=== PATIENT | female | born 1935 | race Caucasian/White ===

== ENCOUNTER 2016-09-14 11:36 | Emergency (ER) | payer OTHER ==
[~2016-09-14] VITALS: Ht 162.6 cm; Wt 77.1 kg
[~2016-09-14 11:36] MED LIST: ALLOPURINOL300 M1 PO; OMEPRAZOLE40 M1 PO
--- NOTE | 2016-09-14 12:30 | ED GI/GU/ABDOMINAL COMPLAINT ---
History of Present Illness General Chief Complaint: Abdominal Pain/Flank Pain Stated Complaint: ABD PAIN Source: patient, family Exam Limitations: no limitations Vital Signs & Intake/Output Vital Signs & Intake/Output Vital Signs Date Time Temp Pulse Resp B/P B/P Pulse O2 O2 Flow FiO2 Mean Ox Delivery Rate 09/14 1627 97.0 78 16 154/84 97 Room Air 09/14 1330 97.3 80 16 167/80 97 Room Air Room Air 09/14 1141 99.1 96 18 165/100 97 Room Air Room Air Allergies Coded Allergies: Penicillins (SOB 03/25/16) Reconcile Medications Allopurinol 300 MG TABLET 1 TAB PO DAILY KIDNEY STONES (Reported) Omeprazole 40 MG CAPSULE. 1 CAP PO DAILY GERD (Reported) Triage Note: TRIAGE: 80 Y/O FEMALE PRESENTS WITH PMHX OF DIVERTICULITIS - C/O PAIN TO RIGHT LOWER ABD X1 WEEK. REPORTS PAIN ALSO PRESENTED IN HER RIGHT FLANK. PER PATIENT, DR ALFARO SUGGESTED AN ABDOMINAL CT SCAN TO RULE OUT DIVERTICULITIS. Triage Nurses Notes Reviewed? yes ? N Is pt currently ? No HPI: 80-year-old female arrived to triage to room 21 for evaluation of abdominal pain that she has had for a week. She Has been complaining of left lower quadrant abdominal pain earlier in the week but now it has traveled over to the right lower quadrant. Seen by Dr. Alfaro a few days ago and had a urine culture that was positive for bacteria so she was started on Cipro. Dr. Alfaro called her yesterday and informed her to go to the emergency department since she was having increased pain and radiation of pain. She has some nausea but no vomiting or diarrhea. She reports loose stools but brown with no blood. Her last bowel movement was last evening. She last ate some toast this morning. Pain is tolerable at this time mild to moderate and she does not want any pain medication. There are no alleviating or aggravating factors. (KALI GARCIA APRN) Past History Travel History Traveled to [place] past 21 day No Medical History Any Pertinent Medical History? see below for history Gastrointestinal: diverticulitis, GERD Renal: GOUT Surgical History Surgical History: hysterectomy Psychosocial History What is your primary language Bermudian Tobacco Use: Never used ETOH Use: denies use Illicit Drug Use: denies illicit drug use Family History Hx Contributory? No (KALI GARCIA APRN) Review of Systems Review of Systems Constitutional: Reports: no symptoms. EENTM: Reports: no symptoms. Respiratory: Reports: no symptoms. Cardiovascular: Reports: no symptoms. GI: Reports: abdominal pain, nausea, changes in stool. Genitourinary: Reports: no symptoms. Musculoskeletal: Reports: no symptoms. Skin: Reports: no symptoms. Neurological/Psychological: Reports: no symptoms. Hematologic/Endocrine: Reports: no symptoms. Immunologic/Allergic: Reports: no symptoms. All Other Systems: Reviewed and Negative (KALI GARCIA APRN) Physical Exam Physical Exam General Appearance: well developed/nourished, no apparent distress, alert, awake , comfortable Neck: normal inspection, supple, full range of motion, normal alignment Respiratory: normal breath sounds, chest non-tender, no respiratory distress Cardiovascular: regular rate/rhythm Peripheral Pulses: 2+ radial (R), 2+ radial (L) Gastrointestinal: normal bowel sounds, soft, tenderness (llq and rlq) Back: normal inspection, normal range of motion Extremities: normal range of motion Neurologic/Psych: no motor/sensory deficits, awake, alert, oriented x 3, normal gait, normal mood/affect Skin: intact, normal color, warm/dry Core Measures ACS in differential dx? No Severe Sepsis Present: No Septic Shock Present: No (KALI GARCIA APRN) Progress Differential Diagnosis: appendicitis, diverticulitis, UTI/pyelo Plan of Care: Orders Procedure Date/time Status Saline Lock 09/14 1234 Active CULTURE,URINE 09/14 1234 Active URINALYSIS 09/14 1234 Complete LIPASE 09/14 1234 Complete COMPREHENSIVE METABOLIC PANEL 09/14 1234 Complete CBC WITHOUT DIFFERENTIAL 09/14 1234 Complete AMYLASE 09/14 1234 Complete Laboratory Tests 09/14/16 1308: Urine Color STRAW, Urine Clarity CLEAR, Urine pH 6.0, Ur Specific [place] 1.010, Urine Protein NEG, Urine Ketones NEG, Urine Nitrite NEG, Urine Bilirubin NEG, Urine Urobilinogen 0.2, Ur Leukocyte Esterase TRACE H, Ur Microscopic SEDIMENT EXAMINED, Urine WBC RARE, Ur Epithelial Cells FEW, Urine Bacteria FEW H, Urine Mucus FEW, Urine Hemoglobin NEG, Urine Glucose NEG 09/14/16 1239: Anion Gap 15, Estimated GFR > 60, BUN/Creatinine Ratio 18.8, Glucose 120 H, Calcium 9.7, Total Bilirubin 0.8, AST 44 H, ALT 62 H, Alkaline Phosphatase 76, Total Protein 7.8, Albumin 4.5, Globulin 3.3, Albumin/Globulin Ratio 1.4, Amylase 78, Lipase 107, CBC w Diff NO MAN DIFF REQ, RBC 4.79, MCV 92.9, MCH 31.2 H, RDW 14.4, MPV 7.5, Gran % 62.9, Lymphocytes % 27.4, Monocytes % 7.2, Eosinophils % 2.1, Basophils % 0.4, Absolute Granulocytes 4.4, Absolute Lymphocytes 1.9, Absolute Monocytes 0.5, Absolute Eosinophils 0.1, Absolute Basophils 0, PUBS MCHC 33.6 Microbiology 09/14 1308 URINE ROUT: Urine Culture - RECD Initial ED EKG: none Comments: PATIENT: CASEY ESCOBAR PRESENT AGE: 80 PATIENT ACCOUNT NO: [id number] : 37 LOCATION: [facility] ORDERING PHYSICIAN: KALI GARCIA APRN SERVICE DATE: 09/14/16 EXAM TYPE: CAT - CT ABD & PELVIS W IV CONTRAST EXAMINATION: CT ABDOMEN AND PELVIS WITH CONTRAST CLINICAL INFORMATION: Diverticulitis. COMPARISON: CT abdomen dated 08/11/2009. TECHNIQUE: Multidetector volumetric imaging was performed of the abdomen and pelvis before and after the IV administration of 95 mL of Optiray 320 intravenous contrast. Sagittal and coronal reformatted images were obtained on the technologist's workstation. DLP: 362.68 mGy-cm FINDINGS: LUNG BASES: There are bibasilar dependent atelectatic changes. LIVER, GALLBLADDER, AND BILIARY TREE: The liver is normal in size, shape, and attenuation. No focal hepatic lesion or biliary ductal dilatation is present. There is layering hyperdensity within the gallbladder, consistent with stones versus sludge. There is no gallbladder wall thickening or pericholecystic inflammatory change. The common bile duct is nondilated. PANCREAS: Unremarkable SPLEEN: Unremarkable ADRENAL GLANDS: Unremarkable KIDNEYS AND URETERS: The kidneys are normal in size, shape, and attenuation. No hydronephrosis, hydroureter, or calculi seen. No perinephric stranding. There are bilateral extrarenal pelvises. BLADDER: Unremarkable GASTROINTESTINAL TRACT: There is no large- or small-bowel obstruction. Extensive diverticula are seen throughout the sigmoid colon without adjacent inflammatory change to suggest acute diverticulitis. The appendix is normal. There is no intra-abdominal free air or free fluid. ABDOMINAL WALL: No significant hernia is appreciated. LYMPH NODES: Normal VASCULAR: Contrast opacifies the abdominal aorta and its branch vessels. There are scattered atherosclerotic calcifications. The IVC is unremarkable. PELVIC VISCERA: The uterus is atrophic or surgically absent. There are multiple phleboliths within the pelvis. OSSEOUS STRUCTURES: There is no lytic or blastic osseous lesion. Degenerative changes are seen within the visualized lower thoracic and lumbar spine. IMPRESSION: 1. Diverticulosis without evidence of acute diverticulitis. Normal appendix. 2. Layering stones versus sludge within the gallbladder without pericholecystic inflammatory change to suggest acute cholecystitis. 3. No hydronephrosis or nephrolithiasis. DICTATED BY: JODEE ROSE MD DATE/TIME DICTATED:09/14/161408 LANGUAGE TUTOR:EDUARDA DATE/TIME TRANSCRIBED:09/14/161408 CONFIDENTIAL, DO NOT COPY WITHOUT APPROPRIATE AUTHORIZATION. <Electronically signed in Other Vendor System> SIGNED BY: JODEE ROSE MD [id number] explained CAT scan results to patient. She is concerned because of the sludge and gallstones that are noted on CAT scan with out inflammation. She reports that she has been told in the past that she's had gallbladder sludge and lower quadrant pain. I explained to her that the type of pain she is having doesn't usually correlate with cholecystitis but we will further evaluate with a abdominal ultrasound. She is still refusing pain medication at this time. PATIENT: CASEY ESCOBAR PRESENT AGE: 80 PATIENT ACCOUNT NO: [id number] : 37 LOCATION: [facility] ORDERING PHYSICIAN: KALI GARCIA APRN SERVICE DATE: 09/14/163695 EXAM TYPE: US - US-LIMITED ABDOMEN EXAMINATION: US ABDOMEN LIMITED CLINICAL INFORMATION: Left lower quadrant abdominal pain. Cholecystitis. COMPARISON: CT abdomen/pelvis done earlier the same day at 12:34 PM. TECHNIQUE: Real-time imaging of the right upper quadrant abdominal viscera. FINDINGS: PANCREAS: Normal LIVER: Hypoechoic, likely representing fatty infiltration. The liver demonstrates normal size and contour. No focal lesion or intrahepatic biliary duct dilatation. GALLBLADDER: Layering stones are seen within the gallbladder. There is no gallbladder wall thickening or pericholecystic free fluid to suggest acute cholecystitis. COMMON BILE DUCT: Normal in caliber measuring 0.3 cm in diameter. RIGHT KIDNEY: Normal. No hydronephrosis. No renal calculi or focal parenchymal lesions. The kidney measures 11.3 cm in maximum dimension. FREE FLUID: None IMPRESSION: 1. Cholelithiasis without gallbladder wall thickening or pericholecystic free fluid to suggest acute cholecystitis. 2. Hypoechoic liver, likely representing fatty infiltration. DICTATED BY: JODEE ROSE MD DATE/TIME DICTATED:09/14/161628 LANGUAGE TUTOR:EDUARDA DATE/TIME TRANSCRIBED:09/14/161628 CONFIDENTIAL, DO NOT COPY WITHOUT APPROPRIATE AUTHORIZATION. <Electronically signed in Other Vendor System> SIGNED BY: JODEE ROSE MD [id number] explained ultrasound results to patient and daughter. They feel much better about diagnosis, not having cholecystitis they will follow up with Dr. Alfaro this week. Case discussed with Dr. Grewal. (KALI GARCIA APRN) Departure Departure Time of Disposition: 1654 Disposition: HOME OR SELF CARE Condition: Stable Clinical Impression Primary Impression: Cholelithiasis Qualifiers: Cholelithiasis location: gallbladder Cholecystitis presence: without cholecystitis Biliary obstruction: without biliary obstruction Qualified Code: K80.20 - Calculus of gallbladder without cholecystitis without obstruction Secondary Impressions: Abdominal pain Qualifiers: Abdominal location: left lower quadrant Qualified Code: R10.32 - Left lower quadrant pain Referrals: DOMINIC LEY,NANCY Abel (PCP/Family) Additional Instructions: Please follow up with Dr. Alfaro this week. Return to the emergency department for any fever, chills, increased abdominal pain, nausea, vomiting, diarrhea. Departure Forms: Customer Survey General Discharge Information (KALI GARCIA APRN) PA/CARE INFORMATION ASSOCIATE Co-Sign Statement Statement: ED Attending supervision documentation- [] I saw and evaluated the patient. I have also reviewed all the pertinent lab results and diagnostic results. I agree with the findings and the plan of care as documented in the PA's/CARE INFORMATION ASSOCIATE's documentation. [] I have reviewed the ED Record and agree with the PA's/CARE INFORMATION ASSOCIATE's documentation. [] Additions or exceptions (if any) to the PAs/CARE INFORMATION ASSOCIATE's note and plan are summarized below: [] (ALEXANDRU LEY,PAUL Cunningham)
[2016-09-14 12:48] LABS: ABSOLUTE BASOPHIL COUNT 0 /CUMM (0.0-0.2); ABSOLUTE EOSINOPHIL COUNT 0.1 /CUMM (0.0-0.7); ABSOLUTE GRANULOCYTE CT 4.4 /CUMM (1.4-6.5); ABSOLUTE LYMPH COUNT 1.9 /CUMM (1.2-3.4); ABSOLUTE MONOCYTE COUNT 0.5 /CUMM (0.10-0.60); BASOPHIL % 0.4 % (0.0-2.0); EOSINOPHIL % 2.1 % (0-5); GRANULOCYTE % 62.9 % (42.2-75.2); HEMATOCRIT 44.5 % (37-47); MEAN CORPUSCULAR HGB 31.2 PG (27.0-31.0); MEAN CORPUSCULAR HGB CONC 33.6 G/DL (33.0-37.0); MEAN CORPUSCULAR VOLUME 92.9 FL (81.0-99.0); MEAN PLATELET VOLUME 7.5 FL (7.4-10.4); PLATELET COUNT 265 /CUMM (130-400); RBC DISTRIBUTION WIDTH 14.4 % (11.5-14.5); RED BLOOD CELL CT 4.79 /CUMM (4.20-5.40)
--- NOTE | 2016-09-14 14:40 | CT SCAN REPORT ---
EXAMINATION: CT ABDOMEN AND PELVIS WITH CONTRAST CLINICAL INFORMATION: Diverticulitis. COMPARISON: CT abdomen dated 08/11/2009. TECHNIQUE: Multidetector volumetric imaging was performed of the abdomen and pelvis before and after the IV administration of 95 mL of Optiray 320 intravenous contrast. Sagittal and coronal reformatted images were obtained on the technologist's workstation. DLP: 362.68 mGy-cm FINDINGS: LUNG BASES: There are bibasilar dependent atelectatic changes. LIVER, GALLBLADDER, AND BILIARY TREE: The liver is normal in size, shape, and attenuation. No focal hepatic lesion or biliary ductal dilatation is present. There is layering hyperdensity within the gallbladder, consistent with stones versus sludge. There is no gallbladder wall thickening or pericholecystic inflammatory change. The common bile duct is nondilated. PANCREAS: Unremarkable SPLEEN: Unremarkable ADRENAL GLANDS: Unremarkable KIDNEYS AND URETERS: The kidneys are normal in size, shape, and attenuation. No hydronephrosis, hydroureter, or calculi seen. No perinephric stranding. There are bilateral extrarenal pelvises. BLADDER: Unremarkable GASTROINTESTINAL TRACT: There is no large- or small-bowel obstruction. Extensive diverticula are seen throughout the sigmoid colon without adjacent inflammatory change to suggest acute diverticulitis. The appendix is normal. There is no intra-abdominal free air or free fluid. ABDOMINAL WALL: No significant hernia is appreciated. LYMPH NODES: Normal VASCULAR: Contrast opacifies the abdominal aorta and its branch vessels. There are scattered atherosclerotic calcifications. The IVC is unremarkable. PELVIC VISCERA: The uterus is atrophic or surgically absent. There are multiple phleboliths within the pelvis. OSSEOUS STRUCTURES: There is no lytic or blastic osseous lesion. Degenerative changes are seen within the visualized lower thoracic and lumbar spine. IMPRESSION: 1. Diverticulosis without evidence of acute diverticulitis. Normal appendix. 2. Layering stones versus sludge within the gallbladder without pericholecystic inflammatory change to suggest acute cholecystitis. 3. No hydronephrosis or nephrolithiasis.
[2016-09-14 16:27] VITALS: BP 154/84
--- NOTE | 2016-09-14 16:47 | ULTRASOUND REPORT ---
EXAMINATION: US ABDOMEN LIMITED CLINICAL INFORMATION: Left lower quadrant abdominal pain. Cholecystitis. COMPARISON: CT abdomen/pelvis done earlier the same day at 12:34 PM. TECHNIQUE: Real-time imaging of the right upper quadrant abdominal viscera. FINDINGS: PANCREAS: Normal LIVER: Hypoechoic, likely representing fatty infiltration. The liver demonstrates normal size and contour. No focal lesion or intrahepatic biliary duct dilatation. GALLBLADDER: Layering stones are seen within the gallbladder. There is no gallbladder wall thickening or pericholecystic free fluid to suggest acute cholecystitis. COMMON BILE DUCT: Normal in caliber measuring 0.3 cm in diameter. RIGHT KIDNEY: Normal. No hydronephrosis. No renal calculi or focal parenchymal lesions. The kidney measures 11.3 cm in maximum dimension. FREE FLUID: None IMPRESSION: 1. Cholelithiasis without gallbladder wall thickening or pericholecystic free fluid to suggest acute cholecystitis. 2. Hypoechoic liver, likely representing fatty infiltration.
== END 2016-09-14 17:10 ==
LOC: ERH 11:36
PROVIDERS: Nurse Practitioner Family
DX: K80.20 Calculus of gallbladder without cholecystitis without obstruction (principal)
CPT/HCPCS: 74177; 81001; 87086; 96360

== ENCOUNTER 2017-07-21 16:37 | Emergency (ER) | payer OTHER ==
[~2017-07-21] VITALS: Ht 162.6 cm; Wt 78.9 kg
[2017-07-21 17:29] LABS: ABSOLUTE BASOPHIL COUNT 0 /CUMM (0.0-0.2); ABSOLUTE EOSINOPHIL COUNT 0.1 /CUMM (0.0-0.7); ABSOLUTE GRANULOCYTE CT 4.7 /CUMM (1.4-6.5); ABSOLUTE LYMPH COUNT 1.5 /CUMM (1.2-3.4); ABSOLUTE MONOCYTE COUNT 0.5 /CUMM (0.10-0.60); BASOPHIL % 0.3 % (0.0-2.0); EOSINOPHIL % 1.2 % (0-5); GRANULOCYTE % 69.2 % (42.2-75.2); HEMATOCRIT 42.5 % (37-47); MEAN CORPUSCULAR HGB 31.3 PG (27.0-31.0); MEAN CORPUSCULAR HGB CONC 33.2 G/DL (33.0-37.0); MEAN CORPUSCULAR VOLUME 94.2 FL (81.0-99.0); MEAN PLATELET VOLUME 7.6 FL (7.4-10.4); PLATELET COUNT 267 /CUMM (130-400); RBC DISTRIBUTION WIDTH 14.4 % (11.5-14.5); RED BLOOD CELL CT 4.51 /CUMM (4.20-5.40); WHITE BLOOD CELL COUNT 6.8 /CUMM (4.8-10.8)
--- NOTE | 2017-07-21 17:43 | ED DYSPNEA/ASTHMA COMPLAINT ---
History of Present Illness General Chief Complaint: General Adult Stated Complaint: SOB,ACHING IN BOTH ARMS Source: patient, family, old records Exam Limitations: no limitations Vital Signs & Intake/Output Vital Signs & Intake/Output Vital Signs Date Time Temp Pulse Resp B/P B/P Pulse O2 O2 Flow FiO2 Mean Ox Delivery Rate 07/21 1846 74 18 150/74 97 Room Air 07/21 1658 97.9 91 18 162/97 97 Room Air Allergies Coded Allergies: Penicillins (SOB 03/25/16) Reconcile Medications Allopurinol 300 MG TABLET 1 TAB PO DAILY KIDNEY STONES (Reported) Omeprazole 40 MG CAPSULE.DR 1 CAP PO DAILY GERD (Reported) Triage Note: PT TO ER C/C ON AND OFF SOB AND BILATERAL ARM ACHING X 2 WEEKS. PATIENT STATES NOTHING MAKES SYMPTOMS ON AND OFF. DENIES C/P. Triage Nurses Notes Reviewed? yes Onset: Gradual Duration: week(s):, intermittent, waxing and waning Timing: recent history Severity: mild, moderate Activities at Onset: none Prior Episodes/Possible Cause: no prior episodes Associated Symptoms: denies HPI: 81-year-old female history of gout presents to ER for evaluation complaining for the past 1 week of dull aching pain to bilateral biceps. She states symptoms came on after she was breaking down boxes. She denies recent fall or trauma pain is nonradiating. No numbness no tingling in her arms. No neck or back pain leg pain numbness tingling or swelling. She also reports a past several months she's had intermittent shortness of breath with talking. Symptoms are not present with exertion no chest pain no cough fever chills hemoptysis. Her arm pain comes on intermittently last a few minutes and subsides on its own. She is not taken anything for it. She is not follow-up with a primary care regarding the symptoms. She never smoked however states she was subjected to secondhand smoke when she was younger. The patient states a few months ago she was bitten by a tick she denies any myalgias at that time no rashes to her skin no fever no chills headaches or any other complaints (Mabel SNOW,Yury) Past History Travel History Traveled to [place] past 21 day No Medical History Any Pertinent Medical History? see below for history Cardiovascular: hyperlipidemia Gastrointestinal: diverticulitis, GERD Renal: GOUT Surgical History Surgical History: hysterectomy Psychosocial History What is your primary language Norwegian Tobacco Use: Never used Family History Hx Contributory? No (Yury Crain) Review of Systems Review of Systems Constitutional: Reports: see HPI. Comments Review of systems: See HPI, All other systems negative. Constitutional, no chills no fever, HEENT: no sore throat no congestion Cardiovascular: No chest pain , no palpitation Skin: no rashes, no change in skin Respiratory:see hpi GI: No nausea no vomiting, no diarrhea, : No dysuria No hematuria, no frequency Muscle skeletal: No joint pain, no back pain Neurologic: , no headache Heme/endocrine: No bruising (Yury Crain) Physical Exam Physical Exam General Appearance: well developed/nourished, alert, awake Respiratory: normal breath sounds, chest non-tender Comments: Well-developed well-nourished person in no acute distress HEENT: Normal EENT exam; PERRL, EOMI, no nystagmus. HEAD is atraumatic. moist mucous membranes. Neck: Supple, , normal range of motion Back: Nontender, no CVA tenderness. Full range of motion Cardiovascular: Regular rate and rhythms no murmurs rubs or gallops, normal JVP Respiratory: Chest nontender.There were no bony deformities, no asymmetry. No respiratory distress. Patient speaking in full complete sentences. Breath sounds clear to auscultation bilaterally: NO W/R/R Abdomen: Soft, nontender Shoulder: Atraumatic/Stable. FROM . Elbow: Atraumatic/stable. FROM. No laxity Upper arm/Forearm: Atraumatic tenderness to palpation over bilateral biceps, pain is not reproducible range of motion there is no erythema warmth swelling no edema, 5 out of 5 region manager strength noted to bilateral upper extremities Hand/Wrist: Atraumatic/stable. Skin intact. FROM Pulses: Normal/equal radial pulses bilaterally. Brisk cap refill lower Extremity: No edema, full range of motion of extremities Neuro: Alert oriented x3, motor sensory normal, cranial nerves II through XII grossly intact. There were no obvious focal neurologic abnormalities. Skin: No appreciable rash on exposed skin, skin is warm and dry. Psych: Mood and affect is normal, memory and judgment is normal. Core Measures ACS in differential dx? No CVA/TIA Diagnosis No Sepsis Present: No Sepsis Focused Exam Completed? No (Yury Crain) Progress Differential Diagnosis: AMI, bronchitis, COPD, pericarditis, pulmonary embolism, pneumonia, unstable angina, tick born illness Plan of Care: Orders Procedure Date/time Status Add-on Test (ER Only) 07/21 1814 Active LYME TITRE 07/21 1713 Active TROPONIN LEVEL 07/22 1711 Complete COMPREHENSIVE METABOLIC PANEL 07/22 1711 Complete CBC WITHOUT DIFFERENTIAL 07/22 1711 Complete EKG 07/21 163 Active Laboratory Tests 07/21/171713: Anion Gap 12, Estimated GFR > 60, BUN/Creatinine Ratio 21.4, Glucose 114 H, Calcium 9.6, Total Bilirubin 0.6, AST 34, ALT 48, Alkaline Phosphatase 62, Troponin I < 0.01, Total Protein 7.4, Albumin 4.1, Globulin 3.3, Albumin/ Globulin Ratio 1.2, CBC w Diff NO MAN DIFF REQ, RBC 4.51, MCV 94.2, MCH 31.3 H, MCHC 33.2, RDW 14.4, MPV 7.6, Gran % 69.2, Lymphocytes % 22.3, Monocytes % 7.0, Eosinophils % 1.2, Basophils % 0.3, Absolute Granulocytes 4.7, Absolute Lymphocytes 1.5, Absolute Monocytes 0.5, Absolute Eosinophils 0.1, Absolute Basophils 0, Lyme Disease Antibody Pending Labs ordered old records. Patient denies any symptoms at this time including shortness of breath ambulatory here with steady gait without shortness of breath reproducible. Case discussed with Dr. De Paz agrees with plan. I discussed with the patient at length all of their results. I had an extensive conversation regarding need for close follow up with their primary care physician this week as well as return precautions. I answered all of their questions, they feel comfortable with the plan and follow-up care. I discussed with the patient/family the medications that they will receive. I gave them signs and symptoms that could indicate an adverse reaction. I have advised them to limit their activities until they can see how they respond to the medication. Diagnostic Imaging: Viewed by Me: Radiology Read. Discussed w/RAD: Radiology Read. Radiology Impression: PATIENT: CASEY ESCOBAR PRESENT AGE: 81 PATIENT ACCOUNT NO: [id number] : 37 LOCATION: [facility] ORDERING PHYSICIAN: Yury SNOW SERVICE DATE: 04 EXAM TYPE: RAD - XRY-CHEST XRAY, TWO VIEWS EXAMINATION: XR CHEST CLINICAL INFORMATION: Dyspnea. COMPARISON: None TECHNIQUE: 2 views of the chest were obtained. FINDINGS: Both lungs are well-expanded and clear. Heart size and pulmonary vascularity is normal. No gross bony abnormality seen. IMPRESSION: Unremarkable chest examination. DICTATED BY: Tru Aguila MD DATE/TIME DICTATED:07/21/171833 COMMUNICATIONS PROFESSIONAL:EDUARDA DATE/TIME TRANSCRIBED:07/21/171833 CONFIDENTIAL, DO NOT COPY WITHOUT APPROPRIATE AUTHORIZATION. <Electronically signed in Other Vendor System> SIGNED BY: Tru Aguila MD 07/21/171837 Initial ED EKG: normal intervals, normal p-waves, normal QRS complex, normal sinus rhythm (80) Prior EKG: unchanged (Yury Crain) Departure Departure Time of Disposition: 1853 Disposition: HOME OR SELF CARE Condition: Stable Clinical Impression Primary Impression: Myalgia Referrals: Kamila LEY,Loli Abel (PCP/Family) Additional Instructions: FOLLOW UP WITH DR ALFARO THIS WEEK. TYLENOL FOR PAIN. RETURN AT ANYTIME SOONER WITH ANY CONCERNS Departure Forms: Customer Survey General Discharge Information (Yury Crain) PA/DRILLING ENGINEERING MANAGER Co-Sign Statement Statement: ED Attending supervision documentation- [] I saw and evaluated the patient. I have also reviewed all the pertinent lab results and diagnostic results. I agree with the findings and the plan of care as documented in the PA's/DRILLING ENGINEERING MANAGER's documentation. [X] I have reviewed the ED Record and agree with the PA's/DRILLING ENGINEERING MANAGER's documentation. [] Additions or exceptions (if any) to the PAs/DRILLING ENGINEERING MANAGER's note and plan are summarized below: [] (Zandra LEY,Wero Beth) Critical Care Note Critical Care Note Critical Care Time: non-applicable (Yury Crain)
--- NOTE | 2017-07-21 18:38 | RADIOLOGY REPORT ---
EXAMINATION: XR CHEST CLINICAL INFORMATION: Dyspnea. COMPARISON: None TECHNIQUE: 2 views of the chest were obtained. FINDINGS: Both lungs are well-expanded and clear. Heart size and pulmonary vascularity is normal. No gross bony abnormality seen. IMPRESSION: Unremarkable chest examination.
[2017-07-21 18:46] VITALS: BP 150/74
== END 2017-07-21 19:10 ==
LOC: ERH 16:37
PROVIDERS: Emergency Medicine
DX: M79.1 Myalgia (principal)
CPT/HCPCS: 86618; 71046; 93005; 93010